=== PATIENT | female | born 1960 | race American Indian/Alaskan Native ===

== ENCOUNTER 2022-07-30 10:49 | Emergency (ER) | payer OTHER ==
[2022-07-30 11:17] VITALS: BP 126/76
[2022-07-30] MEDS ORDERED: CETIRIZINE 10 MG TAB PO ONE (11:24)
--- NOTE | 2022-07-30 12:02 | XRay Report ---
CHEST 2 VIEWS INDICATION / CLINICAL INFORMATION: cough. COMPARISON: None available. FINDINGS: SUPPORT DEVICES: None. HEART / MEDIASTINUM: Borderline cardiomegaly. LUNGS / PLEURA: Mild diffuse reticular interstitial opacities. Questionable left lower lobe nodule be st seen on the frontal view. ADDITIONAL FINDINGS: No significant additional findings. IMPRESSION: 1. Mild diffuse reticular interstitial opacities, nonspecific, potentially chronic however a componen t of acute interstitial pneumonitis less likely edema remain considerations. 2. Possible left lower lobe pulmonary nodule. Chest CT is recommended in follow-up. Signer Name: Jonathan Coronado MD Signed: 07/30/2022 11:58 AM Workstation Name: [id number]
--- NOTE | 2022-07-30 12:17 | Emergency Department Report ---
- General Chief Complaint: Upper Respiratory Infection Stated Complaint: COUGH,BACK PAIN Time Seen by Provider: 07/30/22 11:20 Source: patient Mode of arrival: Ambulatory Limitations: No Limitations - History of Present Illness Initial Comments: This is a 61-year-old female nontoxic, well nourished in appearance, no acute signs of distress presents to the ED with c/o of nonproductive cough x 1 month. Denies any sick contacts. Patient denies any recent travels, long car, recent hospital stays. Patient denies any calf pain or calf tenderness. Patient denies any chest pain, short of breath, fever, chills, nausea, vomiting, hemoptysis, numbness, tingling, headache or stiff neck. MD Complaint: cough -: month(s) Severity scale (0 -10): 0 Improves With: nothing Worsens With: nothing Associated Symptoms: cough. denies: fever, chills, myalgias, diaphoresis, headache, rhinorrhea, nasal congestion, sore throat, stiff neck, chest pain, shortness of breath, abdominal pain, nausea, vomiting, diarrhea, dysuria, rash, confusion, right sweats, weight loss, epistaxis, hoarseness, ear pain Treatments Prior to Arrival: none - Related Data Previous Rx's Medication Instructions Recorded Last Taken Type Benzonatate [Tessalon Perles] 100 mg PO Q8HR #20 capsule 04/29/20 Unknown Rx methOCARBAMOL [Robaxin TAB] 500 mg PO BID #20 tab 04/29/20 Unknown Rx Azithromycin [Zithromax Z-HUNG] 250 mg PO DAILY #6 tab 07/30/22 Unknown Rx Benzonatate [Tessalon Perles] 100 mg PO Q12H PRN #12 cap 07/30/22 Unknown Rx Allergies Allergy/AdvReac Type Severity Reaction Status Date / Time No Known Allergies Allergy Verified 07/30/22 11:16 ED Review of Systems ROS: Stated complaint: COUGH,BACK PAIN Other details as noted in HPI Comment: All other systems reviewed and negative Constitutional: denies: chills, fever Eyes: denies: eye pain, eye discharge, vision change ENT: denies: ear pain, throat pain, congestion Respiratory: cough. denies: shortness of breath, wheezing Cardiovascular: denies: chest pain, palpitations Endocrine: no symptoms reported Gastrointestinal: denies: abdominal pain, nausea, diarrhea Genitourinary: denies: urgency, dysuria, discharge Musculoskeletal: denies: back pain, joint swelling, arthralgia Skin: denies: rash, lesions Neurological: denies: headache, weakness, paresthesias Psychiatric: denies: anxiety, depression Hematological/Lymphatic: denies: easy bleeding, easy bruising ED Past Medical Hx - Past Medical History Previous Medical History?: No - Surgical History Hx Breast Surgery: Yes Additional Surgical History: d&c 1997. surgery for ruptured ovarian cyst 2004. hysterectomy 2004 - Social History Smoking Status: Never Smoker Substance Use Type: None - Medications Home Medications: Home Medications Medication Instructions Recorded Confirmed Last Taken Type Benzonatate [Tessalon Perles] 100 mg PO Q8HR #20 capsule 04/29/20 Unknown Rx methOCARBAMOL [Robaxin TAB] 500 mg PO BID #20 tab 04/29/20 Unknown Rx Azithromycin [Zithromax Z-HUNG] 250 mg PO DAILY #6 tab 07/30/22 Unknown Rx Benzonatate [Tessalon Perles] 100 mg PO Q12H PRN #12 cap 07/30/22 Unknown Rx ED Physical Exam - General Limitations: No Limitations General appearance: alert, in no apparent distress - Head Head exam: Present: atraumatic, normocephalic - Eye Eye exam: Present: normal appearance - Neck Neck exam: Present: normal inspection, full ROM. Absent: lymphadenopathy - Respiratory Respiratory exam: Present: normal lung sounds bilaterally. Absent: respiratory distress, wheezes, rales, rhonchi, stridor, chest wall tenderness, accessory muscle use, decreased breath sounds, prolonged expiratory - Cardiovascular Cardiovascular Exam: Present: regular rate, normal rhythm, normal heart sounds. Absent: bradycardia, tachycardia, irregular rhythm, systolic murmur, diastolic murmur, rubs, gallop - Extremities Exam Extremities exam: Present: full ROM - Back Exam Back exam: Present: full ROM - Neurological Exam Neurological exam: Present: alert, oriented X3, normal gait - Psychiatric Psychiatric exam: Present: normal affect, normal mood - Skin Skin exam: Present: warm, dry, intact, normal color. Absent: rash ED Course Vital Signs 07/30/22 11:15 Temperature 98.4 F Pulse Rate 89 Respiratory 18 Rate Blood Pressure 126/76 [Left] O2 Sat by Pulse 100 Oximetry - Reevaluation(s) Reevaluation #1: 07/30/22 12:13 Patient is speaking in full sentences with no signs of distress noted. ED Medical Decision Making - Radiology Data [facility] [address] [place] [address] XRay Report Signed Patient: KANWAL CHAUDHRY MR#: [id number] : 1960 Acct:[id number] Age/Sex: 61 / F ADM Date: 07/30/22 Loc: ED Attending Dr: Ordering Physician: VIVEK PIZANO NP Date of Service: 07/30/22 Procedure(s): XR chest routine 2V Accession Number(s): [id number] cc: VIVEK PIZANO NP Fluoro Time In Minutes: CHEST 2 VIEWS INDICATION / CLINICAL INFORMATION: cough. COMPARISON: None available. FINDINGS: SUPPORT DEVICES: None. HEART / MEDIASTINUM: Borderline cardiomegaly. LUNGS / PLEURA: Mild diffuse reticular interstitial opacities. Questionable left lower lobe nodule best seen on the frontal view. ADDITIONAL FINDINGS: No significant additional findings. IMPRESSION: 1. Mild diffuse reticular interstitial opacities, nonspecific, potentially chronic however a component of acute interstitial pneumonitis less likely edema remain considerations. 2. Possible left lower lobe pulmonary nodule. Chest CT is recommended in follow-up. Signer Name: Jonathan Coronado MD Signed: 07/30/2022 11:58 AM Workstation Name: [id number] Transcribed By: WP Dictated By: Lachelle CORONADO Electronically Authenticated By: Lachelle CORONADO Signed Date/Time: 07/30/22 1158 DD/ 1156 TD/TT: - Medical Decision Making This is a 61-year-old female that presents with PNA with pulmonay nodular. Patient is stable and was examined by me. Chest x-ray has been obtained and dictated by radiologist. Patient is notified of x-ray results with no questions noted. Patient does not meet clinical concerns of COVID-19 but patient was instructed and educated on signs and symptoms and to self quarantine and seek medical attention as soon as possible if symptoms does occur. Will treatwith dominique. Patient was instructed to increase hydration, rest and take Motrin for fever episodes. Vitals stable. Patient is nonfebrile and normal heart rate. Patient was instructed Follow-up with a primary care doctor in 3-5 days or if symptoms worsen and continue return to emergency room as soon as possible. At time time of discharge, the patient does not seem toxic or ill in appearance. No acute signs of distress noted. Patient agrees to discharge treatment plan of care. No further questions noted by the patient.nt. Critical care attestation.: If time is entered above; I have spent that time in minutes in the direct care of this critically ill patient, excluding procedure time. ED Disposition Clinical Impression: Pulmonary nodule PNA (pneumonia) Qualifiers: Pneumonia type: due to unspecified organism Laterality: unspecified laterality Lung location: unspecified part of lung Qualified Code(s): J18.9 - Pneumonia, unspecified organism Disposition: HOME / SELF CARE / HOMELESS Is pt being admited?: No Does the pt Need Aspirin: No Condition: Stable Instructions: Bacterial Pneumonia (ED), Incidental Abnormal Radiological Finding, Community-Acquired Pneumonia, Adult Additional Instructions: Follow-up with a primary care doctor in 3-5 days or if symptoms worsen and continue return to emergency room as soon as possible. Your symptoms appear most consistent with pneumonia. However, given this current pandemic, COVID-19 is in the differential of possibilities. Despite your previous negative COVID-19 test, I do recommend repeat outpatient Covid 19 testing. In the meantime, isolate/quarantine yourself and stay away from anyone who is elderly, immunocompromised or chronically ill. Please see your nearest health department or primary care doctor that you are referred to for COVID testing. Increased rest, hydration, and take [id number] Tylenol as directed from instructions label for pain/fever episode. Prescriptions: Benzonatate [Tessalon Perles] 100 mg PO Q12H PRN #12 cap PRN Reason: Cough Azithromycin [Zithromax Z-HUNG] 250 mg PO DAILY #6 tab Referrals: PRIMARY CAREMD [Referring] - 3-5 Days BESSIE PERRY MD [Staff Physician] - 3-5 Days Time of Disposition: 12:22
== END 2022-07-30 12:56 | disposition home or self-care (01) ==
LOC: ED 10:49
DX: J18.9 Pneumonia, unspecified organism (principal); R91.1 Solitary pulmonary nodule; Z98.890 Other specified postprocedural states; Z79.899 Other long term (current) drug therapy
CPT/HCPCS: 71046; 99283

== ENCOUNTER 2022-08-03 14:02 | Emergency (ER) | payer OTHER ==
[2022-08-03 15:37] VITALS: BP 140/72
--- NOTE | 2022-08-03 16:12 | Emergency Department Report ---
ED ENT HPI - General Chief complaint: Upper Respiratory Infection Stated complaint: FOLLOW UP Time Seen by Provider: 08/03/22 15:37 Source: patient Mode of arrival: Ambulatory Limitations: Other - Related Data Previous Rx's Medication Instructions Recorded Last Taken Type Benzonatate [Tessalon Perles] 100 mg PO Q8HR #20 capsule 04/29/20 Unknown Rx methOCARBAMOL [Robaxin TAB] 500 mg PO BID #20 tab 04/29/20 Unknown Rx Azithromycin [Zithromax Z-HUNG] 250 mg PO DAILY #6 tab 07/30/22 Unknown Rx Benzonatate [Tessalon Perles] 100 mg PO Q12H PRN #12 cap 07/30/22 Unknown Rx guaiFENesin/CODEINE [Robitussin AC] 10 ml PO TID PRN #120 ml 08/03/22 Unknown Rx Allergies Allergy/AdvReac Type Severity Reaction Status Date / Time No Known Allergies Allergy Verified 08/03/22 15:33 ED Dental HPI - General Chief complaint: Upper Respiratory Infection Stated complaint: FOLLOW UP Time Seen by Provider: 08/03/22 15:37 Source: patient Mode of arrival: Ambulatory Limitations: Other - Related Data Previous Rx's Medication Instructions Recorded Last Taken Type Benzonatate [Tessalon Perles] 100 mg PO Q8HR #20 capsule 04/29/20 Unknown Rx methOCARBAMOL [Robaxin TAB] 500 mg PO BID #20 tab 04/29/20 Unknown Rx Azithromycin [Zithromax Z-HUNG] 250 mg PO DAILY #6 tab 07/30/22 Unknown Rx Benzonatate [Tessalon Perles] 100 mg PO Q12H PRN #12 cap 07/30/22 Unknown Rx guaiFENesin/CODEINE [Robitussin AC] 10 ml PO TID PRN #120 ml 08/03/22 Unknown Rx Allergies Allergy/AdvReac Type Severity Reaction Status Date / Time No Known Allergies Allergy Verified 08/03/22 15:33 ED Review of Systems ROS: Stated complaint: FOLLOW UP Other details as noted in HPI ED Past Medical Hx - Past Medical History Previous Medical History?: No - Surgical History Hx Breast Surgery: Yes Additional Surgical History: d&c 1997. surgery for ruptured ovarian cyst 2004. hysterectomy 2004 - Social History Smoking Status: Never Smoker Substance Use Type: None - Medications Home Medications: Home Medications Medication Instructions Recorded Confirmed Last Taken Type Benzonatate [Tessalon Perles] 100 mg PO Q8HR #20 capsule 04/29/20 Unknown Rx methOCARBAMOL [Robaxin TAB] 500 mg PO BID #20 tab 04/29/20 Unknown Rx Azithromycin [Zithromax Z-HUNG] 250 mg PO DAILY #6 tab 07/30/22 Unknown Rx Benzonatate [Tessalon Perles] 100 mg PO Q12H PRN #12 cap 07/30/22 Unknown Rx guaiFENesin/CODEINE [Robitussin AC] 10 ml PO TID PRN #120 ml 08/03/22 Unknown Rx ED Physical Exam - General Limitations: Other ED Course Vital Signs 08/03/22 15:34 Temperature 98.6 F Pulse Rate 67 Respiratory 18 Rate Blood Pressure 140/72 O2 Sat by Pulse 99 Oximetry Critical care attestation.: If time is entered above; I have spent that time in minutes in the direct care of this critically ill patient, excluding procedure time. ED Disposition Clinical Impression: Cough Qualifiers: Cough type: acute Qualified Code(s): R05.1 - Acute cough Disposition: 01 HOME / SELF CARE / HOMELESS Is pt being admited?: No Does the pt Need Aspirin: No Condition: Stable Instructions: Cough, Adult, [id number] Additional Instructions: Take medications as prescribed. Follow up with your primary care provider or lung doctor for further evaluation qand management. Return to Ed as needed. Prescriptions: guaiFENesin/CODEINE [Robitussin AC] 10 ml PO TID PRN #120 ml PRN Reason: Cough Referrals: JUAN CARLOS GAUTHIER MD [Staff Physician] - 3-5 Days STEPHANE GAUTHIER MD [Referring] - 3-5 Days Forms: Work/School Release Form(ED) Time of Disposition: 16:12
== END 2022-08-03 16:40 | disposition home or self-care (01) ==
LOC: ED 14:02
DX: R05.9 Cough, unspecified (principal)
CPT/HCPCS: 99282